=== PATIENT | female | born 1970 | race Asian ===

== ENCOUNTER → 2017-12-27 15:31 | Outpatient (CLI) | payer OTHER, SELFPAY ==
[2017-12-27 17:19] LABS: ALB/GLOB Ratio 1.1 RATIO (0.9-2.4); AST(SGOT) 25 U/L (15-37); Alanine Aminotransfer ALT/SGPT 39 U/L (13-56); Albumin, Serum 3.7 g/dL (3.2-5.0); Alkaline Phosphatase 106 U/L (45-117); Anion Gap 7 (5-15); BUN 16 mg/dL (7-18); Chloride 105 mmol/L (98-107); Cholesterol 153 mg/dL (200); Creatinine, Serum 0.47 mg/dL (0.55-1.02); EST Glomerular Filtration Rate 150 mL/min (>60); Est Glom Filt Rate - Afr Amer 181 mL/min (>60); Globulin 3.4 g/dL (2.2-4.2); Glucose 93 mg/dL (74-106); High Density Lipoprotein 68 mg/dL; Potassium 3.5 mmol/L (3.5-5.1); Protein, Total 7.1 g/dL (6.4-8.2); Sodium Level 140 mmol/L (136-145); Thyroid Stim Hormone (TSH) < 0.01 uIU/mL (0.358-3.74); Triglycerides 79 mg/dL; Very Low Density Lipoprotein 16 mg/dL (5-40)
== END ==
PROVIDERS: Family Provider Family Medicine; PCP Family Medicine; Visit Provider Family Medicine
DX: Z00.00 Encounter for general adult medical examination without abnormal findings (principal); E03.9 Hypothyroidism, unspecified
CPT/HCPCS: 36415; 80053; 80061; 84443

== ENCOUNTER → 2017-12-29 15:50 | Outpatient (CLI) | payer OTHER, SELFPAY ==
[2017-12-29 17:56] LABS: T4 Free Direct 2.79 ng/dL (0.76-1.46)
[2017-12-29 18:01] LABS: T3 Total - Triiodothyronine 3.18 ng/mL (0.6-1.81)
== END ==
PROVIDERS: Family Provider Family Medicine; PCP Family Medicine; Visit Provider Family Medicine
DX: E03.9 Hypothyroidism, unspecified (principal)
CPT/HCPCS: 36415; 84439; 84480

== ENCOUNTER → 2018-02-15 12:57 | Outpatient (CLI) | payer OTHER, SELFPAY | PROVIDERS: Family Provider Family Medicine; PCP Family Medicine; Visit Provider Nurse Practitioner | DX: E05.90 Thyrotoxicosis, unspecified without thyrotoxic crisis or storm (principal) | CPT/HCPCS: 36415 ==

== ENCOUNTER → 2018-04-14 07:49 | Outpatient (CLI) | payer OTHER, SELFPAY ==
[2018-04-14 09:01] LABS: T4 Free Direct 3.25 ng/dL (0.76-1.46); Thyroid Stim Hormone (TSH) < 0.01 uIU/mL (0.358-3.74)
== END ==
PROVIDERS: Visit Provider Nurse Practitioner
DX: E05.90 Thyrotoxicosis, unspecified without thyrotoxic crisis or storm (principal)
CPT/HCPCS: 36415; 84439; 84443; 84481

== ENCOUNTER → 2019-01-16 | Outpatient (CLI) | payer OTHER, SELFPAY ==
[2019-01-16 16:03] VITALS: BMI 18.6
[2019-01-19 12:51] LABS: HPV Reflexed? NOT INDICATED
== END | disposition home or self-care (01) ==
LOC: BIMLAB 01-17 11:15
PROVIDERS: PCP Family Medicine; Visit Provider Family Medicine
DX: Z01.419 Encounter for gynecological examination (general) (routine) without abnormal findings (principal)
CPT/HCPCS: 88175; G0145

== ENCOUNTER → 2020-01-28 | Outpatient (CLI) | payer OTHER, SELFPAY ==
[2020-01-28 16:10] VITALS: BMI 18.6
[2020-02-01 15:52] LABS: HPV Reflexed? NOT INDICATED
== END | disposition home or self-care (01) ==
LOC: LABSPEC 01-29 10:42
PROVIDERS: PCP Family Medicine; Referring Provider Family Medicine; Visit Provider Family Medicine
DX: Z01.419 Encounter for gynecological examination (general) (routine) without abnormal findings (principal)
CPT/HCPCS: 88175; G0145

== ENCOUNTER → 2020-03-11 08:57 | Outpatient (CLI) | payer OTHER, SELFPAY ==
[2020-01-28 16:10] VITALS: BMI 18.6
--- NOTE | 2020-03-11 08:59 | US_ITS ---
STUDY: ABDOMINAL ULTRASOUND - RIGHT UPPER QUADRANT REASON FOR VISIT: Female, 49 years old BRUISES EASILY TECHNIQUE: Ultrasound evaluation of the right upper quadrant was performed with real-time and static meza-scale imaging. TECHNICAL QUALITY: Adequate. COMPARISON: None. FINDINGS: Liver: The liver measures 17.6 cm. There is increased echogenicity consistent with fatty infiltration. The bile ducts are within normal limits. There is hepatic color flow. The direction of portal flow is hepatopetal. There is no demonstrated mass lesion. Gallbladder: Normal distended gallbladder. The gallbladder wall measures 2.3 mm. There is a negative sonographic Lopez''s sign. There is no pericholecystic fluid. There are no gallstones. Common Bile Duct (C.B.D.): The common bile duct measures 2.1 mm. Pancreas: Normal size of the head, body and tail of the pancreas. There is normal echogenicity of the pancreas. There is no demonstrated pancreatic mass or cyst. Right Kidney: Normal size of the right kidney. The right kidney measures 10 cm x 4.8 cm x 3.2 cm. Normal renal cortex. The right cortex measures 1.1 cm. There is no demonstrated renal mass or cyst. There is no right hydronephrosis. US/Liver IMPRESSION: Fatty infiltration of the liver. Electronically Signed: Modesto Dawkins, at 15:57 EDT , Service support ,
== END ==
PROVIDERS: PCP Family Medicine; Referring Provider Family Medicine; Visit Provider Family Medicine
DX: R23.8 Other skin changes (principal)
CPT/HCPCS: 76705

== ENCOUNTER → 2021-03-03 10:04 | Outpatient (CLI) | payer OTHER, SELFPAY ==
[2021-03-02 16:03] VITALS: BMI 18.6
[2021-03-05 18:42] LABS: HPV Reflexed? NOT INDICATED
== END ==
PROVIDERS: PCP Family Medicine; Referring Provider Family Medicine; Visit Provider Family Medicine
DX: Z01.419 Encounter for gynecological examination (general) (routine) without abnormal findings (principal)
CPT/HCPCS: 88175; G0145

== ENCOUNTER → 2022-01-12 | Outpatient (CLI) | payer BC, SELFPAY ==
[2022-01-12 14:03] LABS: Mucous, Urine 0 SEEN /hpf (<or=2+); Red Blood Cells-Urine 0 SEEN /hpf (0-5); White Blood Cells 0 SEEN /hpf (0-5)
[2022-01-12 15:11] LABS: Absolute Lymphocyte Count 2.79 X10^3/uL (0.83-4.51); Absolute Neutrophil Count 1.9 X10^3/uL (2.0-7.7); Basophil# 0.05 X10^3/uL; Basophil% 0.9 % (0-1); Eosinophil# 0.07 X10^3/uL; Eosinophils% 1.3 % (0-5); Hematocrit 34.2 % (37-47); Hemoglobin 11.2 g/dL (12.0-15.0); Lymphocyte # 2.79 X10^3/ul (0.83-4.51); Lymphocyte % 51.9 % (19-41); Mean Corp Hgb Conc 32.7 g/dL (32-36); Mean Corpuscular Hgb 29.4 pg (27.0-32.0); Mean Corpuscular Volume 89.8 fL (81-99); Mean Platelet Vol. 11.7 fl (6.2-12.0); Monocyte# 0.53 X10^3/uL; Monocyte% 9.9 % (0-10); NRBC Flagged by Analyzer 1.1 % (0-5); Neutrophil # 1.93 X10^3/uL (2.7-7.7); Neutrophil % 35.8 % (47-70); POSITIVE COUNT YES; Platelet Count 90 K/mm3 (150-450); RBC Distribution Width CV 16.2 % (11.6-14.6); RBC Distribution Width SD 53.1 fl (35.1-43.9); Red Blood Count 3.81 M/mm3 (4.2-5.4); White Blood Count 5.4 K/mm3 (4.4-11.0)
[2022-01-12 15:14] LABS: Differential Indicated SCAN CRITERIA MET
[2022-01-12 15:42] LABS: Color, Urine Yellow (Yellow); Glucose, Dipstick Normal (Normal); Ketone-Dipstick Negative (Negative); Leukocyte Esterase-Dipstick Negative /ul (Negative); Nitrite-Dipstick Negative (Negative); Occult Blood-Urine Negative /ul (Negative); Protein-Dipstick 15 mg/dl (Negative); Urine Bilirubin Dipstick Negative (Negative); Urine Clarity Clear (Clear); Urine Urobilinogen 1 mg/dl (Normal); Urine pH 6.5 (5.0 - 8.0)
[2022-01-12 15:54] LABS: Differential Comment SCANNED
[2022-01-12 16:00] LABS: Bacteria 1+ /hpf (None Seen); Squamous Epithelial Cells - UA 0-5 SEEN /hpf (5-10)
[2022-01-12 16:59] LABS: AST(SGOT) 57 U/L (15-37); Alanine Aminotransfer ALT/SGPT 61 U/L (13-56); Albumin, Serum 3.8 g/dL (3.2-5.0); Alkaline Phosphatase 139 U/L (45-117); Anion Gap 7 (5-15); BUN 12 mg/dL (7-18); BUN/Creat Ratio 14.1 RATIO (10-20); Calcium,Total 9.2 mg/dL (8.5-10.1); Chloride 103 mmol/L (98-107); Creatinine, Serum 0.85 mg/dL (0.55-1.02); EST Glomerular Filtration Rate 75 mL/min (>60); Est Glom Filt Rate - Afr Amer 90 mL/min (>60); Globulin 3.8 g/dL (2.2-4.2); Glucose 109 mg/dL (74-106); Potassium 3.5 mmol/L (3.5-5.1); Protein, Total 7.6 g/dL (6.4-8.2); Sodium Level 138 mmol/L (136-145)
[2022-01-12 21:38] LABS: T4 Free Direct 1.19 ng/dL (0.76-1.46); Thyroid Stim Hormone (TSH) 1.32 uIU/mL (0.358-3.74)
[2022-01-12 21:50] LABS: T3 Total - Triiodothyronine 1.81 ng/mL (0.6-1.81)
[2022-01-19 10:27] LABS: HPV Reflexed? NOT INDICATED
== END | disposition home or self-care (01) ==
LOC: BIMLAB 14:02
PROVIDERS: PCP Family Medicine; Referring Provider Family Medicine; Visit Provider Family Medicine
DX: Z01.419 Encounter for gynecological examination (general) (routine) without abnormal findings (principal); E05.90 Thyrotoxicosis, unspecified without thyrotoxic crisis or storm
CPT/HCPCS: 36415; 80053; 81001; 82533; 84439; 84443; 84480; 85025; 88175; G0145

== ENCOUNTER → 2023-03-02 | Outpatient (CLI) | payer BC, SELFPAY ==
[2023-03-09 14:23] LABS: HPV, High Risk Negative
== END | disposition home or self-care (01) ==
LOC: LABSPEC 15:47
PROVIDERS: PCP Family Medicine; Visit Provider Family Medicine
DX: Z01.419 Encounter for gynecological examination (general) (routine) without abnormal findings (principal)
CPT/HCPCS: 87623; 87624; 88142

== ENCOUNTER → 2024-02-07 | Outpatient (CLI) | payer BC, SELFPAY ==
[2024-02-07 17:32] LABS: Absolute Lymphocyte Count 2.56 X10^3/uL (0.83-4.51); Absolute Neutrophil Count 2.5 X10^3/uL (2.0-7.7); Basophil# 0.07 X10^3/uL; Basophil% 1.2 % (0-1); Eosinophil# 0.08 X10^3/uL; Eosinophils% 1.3 % (0-5); Erythrocyte Sedimentation Rate 26 mm/hr (0-30); Hematocrit 31.4 % (37-47); Hemoglobin 9.9 g/dL (12.0-15.0); Lymphocyte # 2.56 X10^3/ul (0.83-4.51); Lymphocyte % 42.2 % (19-41); Mean Corp Hgb Conc 31.5 g/dL (32-36); Mean Corpuscular Hgb 29.7 pg (27.0-32.0); Mean Corpuscular Volume 94.3 fL (81-99); Mean Platelet Vol. 10.8 fl (6.2-12.0); Monocyte# 0.83 X10^3/uL; Monocyte% 13.7 % (0-10); NRBC Flagged by Analyzer 0 % (0-5); Neutrophil % 41.3 % (47-70); Platelet Count 245 K/mm3 (150-450); RBC Distribution Width CV 14.5 % (11.6-14.6); RBC Distribution Width SD 49.6 fl (35.1-43.9); Red Blood Count 3.33 M/mm3 (4.2-5.4); White Blood Count 6.1 K/mm3 (4.4-11.0)
[2024-02-08 09:13] LABS: ALB/GLOB Ratio 0.7 RATIO (0.9-2.4); AST(SGOT) 32 U/L (15-37); Alanine Aminotransfer ALT/SGPT 27 U/L (13-56); Albumin, Serum 3.2 g/dL (3.2-5.0); Alkaline Phosphatase 119 U/L (45-117); Anion Gap 8 (5-15); BUN 9 mg/dL (7-18); BUN/Creat Ratio 13.6 RATIO (10-20); Calcium,Total 9.1 mg/dL (8.5-10.1); Chloride 99 mmol/L (98-107); Creatinine, Serum 0.66 mg/dL (0.55-1.02); EST Glomerular Filtration Rate 99 mL/min (>60); Est Glom Filt Rate - Afr Amer 119 mL/min (>60); Globulin 4.5 g/dL (2.2-4.2); Glucose 112 mg/dL (74-106); Potassium 3.4 mmol/L (3.5-5.1); Protein, Total 7.7 g/dL (6.4-8.2); Rheumatoid Factor < 10.0 IU/mL (<15); Sodium Level 138 mmol/L (136-145); Uric Acid 4.6 mg/dL (2.6-6.0)
[2024-02-14 18:33] LABS: HPV Reflexed? NOT INDICATED
[2024-02-14 18:34] LABS: Chlamydia By Nucleic Acid AMP Negative; Gonococcus By Nucleic Acid AMP Negative
== END | disposition home or self-care (01) ==
LOC: BIMLAB 13:48
PROVIDERS: PCP Family Medicine; Visit Provider Family Medicine
DX: E03.9 Hypothyroidism, unspecified (principal); M19.90 Unspecified osteoarthritis, unspecified site
CPT/HCPCS: 36415; 80053; 84443; 84550; 85025; 85652; 86431; 87491; 87591; 88142

== ENCOUNTER → 2024-02-16 | Outpatient (CLI) | payer BC, SELFPAY ==
--- NOTE | 2024-02-16 11:10 | RAD_ITS ---
STUDY: X-RAY - RIGHT ANKLE REASON FOR EXAM: Female, 53 years old. Swollen right ankle. TECHNIQUE: 3 views of the right ankle. COMPARISON: None. FINDINGS: Normal visualized distal tibia. Intact medial and lateral malleoli. There is lateral osseous spurring at the distal fibular tip and lateral calcaneus. Normal tibiotalar articulation and ankle mortise. There is metallic fixation hardware along the lateral aspect of the calcaneus. Intact visualized talus and calcaneus. The visualized subtalar, talonavicular, calcaneocuboid and tarsal articulations are normal. There is no demonstrated acute fracture. There is soft tissue swelling around the ankle. RAD/Ankle min 3 Views IMPRESSION: Lateral osseous spurring at the distal fibular tip and lateral calcaneus. Soft tissue swelling around the ankle. No demonstrated acute fracture. Electronically Signed: Yobany Huddleston MD at 12:46 EDT ,
[2024-02-16 11:43] LABS: Iron 105 ug/dL (50-170); Iron Binding Capacity,Total 349 ug/dL (250-450); PERCENT IRON SATURATION 30.1 % (15.0-55.0)
== END | disposition home or self-care (01) ==
LOC: LAB 10:38
PROVIDERS: PCP Family Medicine; Referring Provider Family Medicine; Visit Provider Family Medicine
DX: M25.571 Pain in right ankle and joints of right foot (principal)
CPT/HCPCS: 36415; 73610; 83540; 83550

== ENCOUNTER 2024-03-26 06:50 | Day surgery (SDC) | payer BC, SELFPAY ==
[2024-03-26] VITALS (8 sets, daily range): BP systolic 106–155; BP diastolic 68–88; PULSE 80–92; RESP 16–18; TEMP 36.8–37.2; O2SAT 96–100; BMI 18.3
[2024-03-26] MEDS: Lactated Ringers 1,000 ML 15 ML IV (07:11)
--- NOTE | 2024-03-26 07:11 | HP.PCM_ITS ---
History and Physical Date of Admission: 03/26/24 Date of Service: 03/12/24 MR#: [id number] Acct: [id number] Name: SAL PATEL Rep #: [id number] : 1970 Provider: Dr. Jennifer Mcguire MD Age/Sex: 53/F Location: [facility] Status: Signed Intake Vital Signs 02/19/2410:38 03/12/2414:15 Height 5 ft 4 in 5 ft 4 in Weight: 107 lb 108 lb BMI 18.3 18.5 BP 112/60 134/89 H Blood Pressure Location Lt brachial Rt brachial Position Sitting Sitting Respiration 14 17 Pulse 84 94 Pulse Source Monitor Monitor Temp 97 F L Temp Source Temporal Pulse Oximetry (%) 99 97 Oxygen Delivery Method room air room air Intake Visit Reasons: WEIGTH LOSS, NAUSEA Chief Complaint: wt loss/nausea/anemia Is patient in pain?: No Allergies No Known Allergies Allergy (Verified 03/12/24 14:17) Medications ?Medication ?Instructions ?Recorded ?Confirmed ?Type multivitamin 1 cap PO QAM 12/27/17 03/12/24 History PFSH Medical History Hypothyroidism Carpal tunnel syndrome Cataracts, bilateral Surgical History History of carpal tunnel release of both wrists Hx of foot surgery Family History Sister Breast cancer Thyroid disorder Diabetes Social History Smoking Status: Current every day smoker alcohol intake: current alcohol intake frequency: 0-2 drinks per day Alcohol type: beer substance use type: does not use what type of physical activity do you participate in: none HPI HPI HPI: 53-year-old female presents for possible colonoscopy. Patient never had previous colonoscopy. Patient is unsure of family history as she left her country when she was 11 and does not know further family history than her parents otherwise denies history of colon cancer. Patient did recently have wrist surgery and has been dealing with that since November. Patient states that with her wrist she does not really feel like cooking this has not really ate as much states that when her cooks she has been eating and her is agreeable to this. Patient states she has bowel movements daily denies any blood denies any abdominal pain nausea vomiting or reflux. Patient's weight is 108 states maybe 10 years ago was 116 and 20 years before that was 130 but she was at that time. Patient does not think there has been major or concerning weight loss. Patient does go back to work March 28 as she states she does not have any vacation as she used it up with her wrist. ROS General General: Yes weight change; No appetite, fatigue, colon cancer, breast cancer or weakness HEENT HEENT: Yes eye surgery; No difficulty swallowing, eye injury, swollen glands or hoarseness Endo Endocrine: Yes thyroid disease; No diabetes mellitus, thyroid cancer, Hair loss, heat intolerance or cold intolerance Skin Skin: No rash or changing moles Musc Musculoskeletal: No back problems, arthritis, rheumatoid arthritis, gout or joint pain Cardio Cardiovascular: No murmur, pacemaker, heart disease, atrial fibrillation, high blood pressure, heart attack, heart stent, palpitations, shortness of breat with exertion or chest pain Psych Psychiatric: Yes depression; No anxiety or hearing voices Resp Respiratory: No shortness of breath, No sleep apnea, No cough, No COPD, No asthma, No emphysema and No wheezing Gastro Gastrointestinal: No abdominal pain, Yes nausea or vomiting, No diarrhea, No constipation, No blood in stool, No acid reflux, No hemorrhoids, No ulcers, No gallbladder problem and No black,tarry stools Asad Hematologic: No blood thinners, No blood disorders, No bleeding, No anemia and No blood clots Neuro Neurologic: No system reviewed and no additional complaints, except as documented, No as per HPI, No abnormal gait, No abnormal hearing, No abnormal movements, No abnormal speech, No behavioral changes, No burning sensations, No confusion, No convulsions, No disequilibrium, No dizziness, No localized weakness, No frequent falls, No headache(s), No lack of coordination, No loss of vision, No memory loss, No numbness, No other visual disturbances, No radicular pain, No restless legs, No sensory deficit, No syncope, No tingling, No tremor(s), No weakness and No other Exam Const General: cooperative, healthy appearing, comfortable and no acute distress HENMT Head: normocephalic and atraumatic Neck Neck: supple Resp Effort & Inspection: normal respiratory effort Cardio Rate: regular rate GI Inspection: non-distended Palpation: soft, no hernias and nontender Skin General: no rashes or lesions noted Neuro General: CN's II-XI intact bilaterally Extrem General: normal to inspection Other: Left hand/wrist brace in place Psych Mental Status: mental status grossly normal Attitude: cooperative Assessment and Plan Assessment and Plan (1) Anorexia: Status: Acute (2) Screening for malignant neoplasm of colon: Status: Acute Orders: Orders Colonoscopy 03/26/24 Plan After talking with patient sounds like she is not really anorexic just did not really want to prepare food due to her wrist surgery thus did not really eat as much. Patient's has been preparing food and patient has been eating without any issues or difficulties per patient and her agrees. Patient's weight has not really changed too much recently. Will plan for a screening colonoscopy. I have discussed the above with the patient. I have offered the patient colonoscopy for evaluation. I have explained the risks/benefits of the procedure and described the procedure. I have discussed the risks with the patient, including but not limited to: infection, bleeding, perforation of the GI tract requiring emergency surgery, inability to complete the procedure, injury to any internal organs, complications of anesthesia, etc. - the patient understands and agrees to proceed. I have answered all the patient's questions to the patient's satisfaction and the patient has no further questions. The patient has been given instructions for the colon cleansing preparation. 1 day of clears, MiraLAX Dulcolax prep. Jennifer Mcguire M.D. Pager: [phone] [facility] [address] [place] [address], [address] [place] [address] Office: [phone] Coding Level of Care Code Off vis,new,level 3 Diagnoses Anorexia R63.0 Screening for malignant neoplasm of colon Z12.11 03/13/24 1028 <Electronically signed by Jennifer Mcguire MD> Date Jennifer Mcguire MD
--- NOTE | 2024-03-26 07:18 | PCM.PRE.AN2 ---
ASA Classification* ASA Classification ASA Classification: 2 Assessment & Plan Anesthesia* Anesthesia Assessment Anesthesia Assessment: Discussed sedation and/or anesthesia options, risks, benefits, and alternatives with patient/parents/legal guardian/POA. Questions invited. The patient/parents/legal guardian/POA seems to understand and agrees to proceed with anesthesia plan. Reviewed the physical assessment, medical history, allergy history and patient home medications list prior to surgery/procedure/anesthetic and documented any changes. Performed airway and anesthesia risk assessments. Anesthesia Type Anesthesia Type: MAC (see written pre anesthesia record for full assessment) Anesthesia Focused Assessment* Temperature: 98.9 F Pulse Rate: 92 Blood Pressure: 155/88 Respiratory Rate: 18 Pulse Ox: 98 Airway Assessment Mouth opens: >3 cm Mallampati Score: III Focused Labs Anesthesia Preop lab: CBC WBC 6.1 K/mm3 (4.4-11.0) 02/07/24 13:48 RBC 3.33 M/mm3 (4.2-5.4) L 02/07/24 13:48 Hgb 9.9 g/dL (12.0-15.0) L 02/07/24 13:48 Hct 31.4 % (37-47) L 02/07/24 13:48 Plt Count 245 K/mm3 (150-450) 02/07/24 13:48 CHEMISTRY Potassium 3.4 mmol/L (3.5-5.1) L 02/07/24 13:48 Sodium 138 mmol/L (136-145) 02/07/24 13:48 BUN 9 mg/dL (7-18) 02/07/24 13:48 Creatinine 0.66 mg/dL (0.55-1.02) 02/07/24 13:48 Glucose 112 mg/dL (74-106) H 02/07/24 13:48 TSH 0.30 uIU/mL (0.358-3.74) L 02/07/24 13:48 COAG Pre-Assessment Diagnosis/Proposed Procedure Planned Operative Procedure(s): CSCOPE Anesthesia History Anesthesia History - health science specialist: Anesthesia History - health science specialist Hx Hospitalization No 03/20/24 14:38 Any Problems With Anesthesia No 03/20/24 14:38 Cholinesterase deficiency No 03/20/24 14:38 You/Your Family Experience No 03/20/24 14:38 fever (hyperthermia) with Relationship Recent Exposure to Contagious No 03/26/24 07:13 Disease Does patient have nerve No 03/20/24 14:38 stimulator Patient instructed to have device shut off --Does patient have Pacemaker No 03/26/24 07:13 or ICD? When Was Last Pacemaker Check QUESTION #4 FULL TEXT: You/Your Family Experience fever (hyperthermia) with Anesthesia Last Oral Intake Last Oral intake: Last Oral Intake NPO since 00:00 03/26/24 07:13 Meds taken in AM with sips of No 03/26/24 07:13 water? Meds patient instructed to take am of surgery PONV PONV - health science specialist: PONV - health science specialist Female Yes 03/20/24 14:38 HX of Motion Sickness No 03/20/24 14:38 HX of N/V After Surgery No 03/20/24 14:38 Non-Smoker No 03/20/24 14:38 Duration of Surgery greater No 03/20/24 14:38 than 60 minutes Number of Risk Factors 1 03/20/24 14:38 PONV Score Low Risk 03/20/24 14:38 Height & Weight Height & Weight: Anesthesia: Height & Weight Height 5 ft 4 in 03/26/24 07:13 Weight: 48.534 kg 03/26/24 07:13 Body Mass Index (BMI) 18.3 03/26/24 07:13 Respiratory Assessment Respiratory Assessment - health science specialist: Respiratory Tract Infection Hx - health science specialist Hx Respiratory Tract Infection No 03/20/24 14:38 STOP Sleep Apnea STOP Sleep Apnea - health science specialist: STOP Sleep Apnea - health science specialist Hx Hypertension No 03/20/24 14:38 Hx Sleep Apnea No 03/20/24 14:38 CPAP BIPAP Do you snore loudly (louder No 03/20/24 14:38 than talking or can be heard Do you often feel tired/ No 03/20/24 14:38 fatigued/ sleepy during daytime? Has anyone observed you stop No 03/20/24 14:38 breathing during sleep? STOP Results Negative 03/20/24 14:38 QUESTION #5 FULL TEXT : Do you snore loudly (louder than talking or can be heard through closed doors)? 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 Specify any problems Hx of Preganancy in last 3 N/A 03/20/24 14:38 Months Nurse Filling Out Transfusion NBUCHER 03/20/24 14:38 & Questions: Date: 03/20/24 03/20/24 14:38 Time: 14:39 03/20/24 14:38 Patient unable to answer at this time (ie. confused, unrespo /Reproduction History /Reproductive History - health science specialist: /Reproductive Hx- health science specialist Hx Now No 03/20/24 14:38 Gestational Age (in weeks): EDC: Hx Hx Para Hx Section SAB No 03/20/24 14:38 Active Medications Active Medications: Current Medications Generic Name Dose Route Start Last Admin Trade Name Freq PRN Reason Stop Dose Admin Lactated Ringer's 1,000 mls @ 15 mls/hr 03/26/24 07:00 03/26/24 07:11 IV 15 mls/hr .Q48H JOSE Administration PFSH Medical History Wears glasses Post-menopausal Alcohol use Thyroid disease Smoker Hypothyroidism Carpal tunnel syndrome Cataracts, bilateral Home Medications ?Medication ?Instructions ?Recorded ?Last Taken ?Type multivitamin 1 cap PO QAM 12/27/17 Unknown History Allergy/AdvReac Type Severity Reaction Status Date / Time No Known Allergies Allergy Verified 03/26/24 07:17 Family History Sister Breast cancer Thyroid disorder Diabetes Surgical History History of carpal tunnel release of both wrists Hx of foot surgery Social History Smoking Status: Current every day smoker tobacco type: cigarettes alcohol intake: current alcohol intake frequency: 0-2 drinks per day Alcohol type: beer substance use type: does not use what type of physical activity do you participate in: none Review of Systems (Anesthesia) ROS Narrative System reviewed and no additional complaints, except as documented.
--- NOTE | 2024-03-26 08:00 | COLBX_PTH ---
PATIENT: SAL PATEL LOC: EN U#:[id number] AGE/SX: 53/F ROOM: RE03/26/[address]: Dr. Jennifer Mcguire MD : 1970 BED: DIS: 03/26/2024 SPEC #: [id number] RECD: 03/26/24 11:11 STATUS: TRESSA ROBERTO #: [id number] JOSE: 03/26/24 08:[address]: Jennifer Mcguire DEPT: SURGICAL PATHOLOGY RECD BY: Gaby Mc ENTERED: 03/26/24 13:06 SP TYPE: COLON BX OTHR DR: Dr. Neftali Nobles, DO Tissues: Cecum, NOS Procedures: Surgery Specimen Level IV HEADER OPERATION: Colonoscopy with polyp biopsy PRE-OP DIAGNOSIS: Anorexia, screening TISSUE SUBMITTED: Cecum polyp biopsy x2 MICROSCOPIC DIAGNOSIS Cecum polyp, biopsy: Fragments of tubular adenoma. AM/mr 03/27/2024 MICROSCOPIC DESCRIPTION Slides are reviewed. GROSS DESCRIPTION Received in fixative is one container labeled with the patient's name and designated Cecum polyp biopsy x2. The specimen consists of multiple irregular fragments of light awad soft tissue that in aggregate measure 1.0 x 0.3 x 0.1 cm. The specimen is totally submitted in one cassette. JOSE/ 03/26/2024 TC:5 CPT:62991
--- NOTE | 2024-03-26 08:13 | OP.CCLET_ITS ---
03/26/2024 Neftali Nolbes Re : Colonoscopy procedure for Katie Wheeler Dear Dr. Nobles This procedure was performed on Tuesday, March 26, 2024. My impressions and recommendations are as follows: Impressions : - Two less than 5 mm polyps in the cecum, removed with a cold biopsy forceps. Resected and retrieved. - The examination was otherwise normal on direct and retroflexion views. Recommendations : - Discharge patient to home. - Resume previous diet. - Continue present medications. - Await pathology results. - Repeat colonoscopy in 5 years for surveillance based on pathology results. My findings are described in the full procedure note, which is enclosed. If I can be of further assistance, please feel free to contact me at Doctor phone number(s): , Work: . Sincerely, MD Jennifer Rowell MD 03/26/2024 8:13:20 AM This report has been signed electronically.
--- NOTE | 2024-03-26 08:13 | OP.COLON_ITS ---
Patient Name: Katie Wheeler Procedure Date: 03/26/2024 7:43 AM Date of : 1970 Age: 53 Procedure: Colonoscopy Indications: Screening for colorectal malignant neoplasm Providers: Jennifer Mcguire MD Referring MD: Neftali Nobles Medicines: Monitored Anesthesia Care Patient Profile: This is a 53 year old female. Last Colonoscopy: none. The patient's first colonoscopy is today. Complications: No immediate complications. Procedure: Pre-Anesthesia Assessment: - Prior to the procedure, a History and Physical was performed, and patient medications and allergies were reviewed. The patient's tolerance of previous anesthesia was also reviewed. The risks and benefits of the procedure and the sedation options and risks were discussed with the patient. All questions were answered, and informed consent was obtained. Prior Anticoagulants: The patient has taken no anticoagulant or antiplatelet agents. ASA Grade Assessment: Per anesthesia. After reviewing the risks and benefits, the patient was deemed in satisfactory condition to undergo the procedure. After I obtained informed consent, the scope was passed under direct vision. Throughout the procedure, the patient's blood pressure, pulse, and oxygen saturations were monitored continuously. The Colonoscope was introduced through the anus and advanced to the terminal ileum. The colonoscopy was performed without difficulty. The patient tolerated the procedure well. The quality of the bowel preparation was good. Scope In: 7:54:37 AM Scope Withdrawal Time 0 hours 9 minutes 12 seconds Scope Out: 8:08:15 AM Total Procedure Duration Time 0 hours 13 minutes 38 seconds Findings: The perianal and digital rectal examinations were normal. Two sessile polyps were found in the cecum. The polyps were less than 5 mm in size. These polyps were removed with a cold biopsy forceps. Resection and retrieval were complete. The exam was otherwise without abnormality on direct and retroflexion views. Impression: - Two less than 5 mm polyps in the cecum, removed with a cold biopsy forceps. Resected and retrieved. - The examination was otherwise normal on direct and retroflexion views. Recommendation: - Discharge patient to home. - Resume previous diet. - Continue present medications. - Await pathology results. - Repeat colonoscopy in 5 years for surveillance based on pathology results. Procedure Code(s): --- Professional --- 29223, PT, Colonoscopy, flexible; with biopsy, single or multiple Diagnosis Code(s): --- Professional --- Z12.11, Encounter for screening for malignant neoplasm of colon D12.0, Benign neoplasm of cecum CPT copyright 2021 [employer]. All rights reserved. The codes documented in this report are preliminary and upon software development manager review may be revised to meet current compliance requirements. MD Jennifer Rowell MD 03/26/2024 8:13:20 AM This report has been signed electronically. Number of Addenda: 0 Note Initiated On: 03/26/2024 7:43 AM
--- NOTE | 2024-03-26 08:17 | PCM.POST.ANE ---
Anesthesia: Postop Eval I Current Vital Signs Temperature: 98.2 F Pulse Rate: 88 Blood Pressure: 106/75 Respiratory Rate: 18 Pulse Ox: 100 Oxygen Delivery Method: Room Air Assessment Airway patent: Yes Spontaneous unlabored respirations: Yes Mental status: Awake and Calm nausea: No Vomiting: No Anesthesia Complication: No Fluid Hydration Crystalloid volume administer (ml): 500 Total IV fluid infused: 500 Progress Note Anesthesia document: Postop Eval 1 completed: Yes
--- NOTE | 2024-03-26 08:28 | PCM.POSTANE2 ---
Anesthesia Postop Eval I Sum Postop Eval Completion status Anesthesia document: Postop Eval 1 completed: Yes Anesthesia Postop Eval I Summary Anesthesia Postop Eval I Summary: Anesthesia Postop Eval I: Assessment Summary Airway patent Yes 03/26/24 08:18 [email or web address] Spontaneous unlabored Yes 03/26/24 08:18 [email or web address] respirations Mental status Awake,Calm 03/26/24 08:18 [email or web address] nausea No 03/26/24 08:18 [email or web address] Vomiting No 03/26/24 08:18 [email or web address] Anesthesia Postop Eval I: Fluid Summary Crystalloid volume administer 500 03/26/24 08:18 [email or web address] (ml) Colloids volume administered ( ml) Blood Product volume administered (ml) Total IV fluid infused 500 03/26/24 08:18 [email or web address] Anesthesia Postop Eval I: Summary Notes Anesthesia Complication No 03/26/24 08:18 [email or web address] Anesthesia Complication Comment: Post-operative progress note Anesthesia: Postop Eval II Evaluation Mental status: Awake Pain Level: 0 nausea: No Vomiting: No
== END 2024-03-26 08:39 | disposition home or self-care (01) ==
LOC: EN 06:51 → AC 06:52
PROVIDERS: PCP Family Medicine; Referring Provider Family Medicine; Visit Provider Surgery
PROC: 0DJD8ZZ Inspection of Lower Intestinal Tract, Via Natural or Artificial Opening Endoscopic (ICD-10-PCS; CPT 45378; principal; 2024-03-26 07:55)
DX: Z12.11 Encounter for screening for malignant neoplasm of colon (principal); D12.0 Benign neoplasm of cecum; F17.200 Nicotine dependence, unspecified, uncomplicated; D64.9 Anemia, unspecified; R63.0 Anorexia
CPT/HCPCS: 45380; 88305; J7120; J2405

== ENCOUNTER → 2025-05-07 | Outpatient (CLI) | payer BC, SELFPAY ==
[2025-05-07 16:35] LABS: Hematocrit 30.0 % (37-47); Hemoglobin 10.3 g/dL (12.0-15.0); Immature Granulocytes Count 0.010 X10^3/uL (0.0-0.0); Mean Corp Hgb Conc 34.3 g/dL (32-36); Mean Corpuscular Volume 92.0 fL (81-99); Mean Platelet Vol. 13.2 fl (6.2-12.0); NRBC Flagged by Analyzer 0 % (0-5); POSITIVE COUNT YES; Platelet Count 37 K/mm3 (150-450); RBC Distribution Width CV 13.7 % (11.6-14.6); RBC Distribution Width SD 46.3 fl (35.1-43.9); Red Blood Count 3.26 M/mm3 (4.2-5.4); White Blood Count 4.5 K/mm3 (4.4-11.0)
[2025-05-07 16:58] LABS: AST(SGOT) 184 U/L (<=31); Alanine Aminotransfer ALT/SGPT 73 U/L (<=34); Albumin, Serum 4.4 g/dL (3.5-5.0); Alkaline Phosphatase 121 U/L (35-104); Anion Gap 19 (5-15); BUN 13 mg/dL (4-19); BUN/Creat Ratio 19.0 RATIO (10-20); Calcium,Total 8.4 mg/dL (7.6-11.0); Carbon Dioxide 24.4 mmol/L (21.0-32.0); Chloride 95 mmol/L (98-108); Globulin 2.9 g/dL (2.2-4.2); Glucose 89 mg/dL (70-99); Potassium 3.3 mmol/L (3.3-5.1)
[2025-05-07 18:15] LABS: Differential Indicated SCAN CRITERIA MET
[2025-05-07 18:16] LABS: Target Cells 2+
== END | disposition home or self-care (01) ==
LOC: BIMLAB 14:55
PROVIDERS: PCP Family Medicine; Referring Provider Family Medicine; Visit Provider Family Medicine
DX: D64.9 Anemia, unspecified (principal); R63.0 Anorexia
CPT/HCPCS: 36415; 80053; 85025; 85652

== ENCOUNTER → 2025-06-13 | Outpatient (CLI) | payer BC, SELFPAY ==
--- NOTE | 2025-06-13 10:48 | US_ITS ---
PROCEDURE: ABD COMPLETE W/ ELASTOGRAPHY 06/13/2025 REASON FOR EXAM: ELEVATED LFTS COMPARISON: Prior study dated March 11, 2020. TECHNIQUE: Procedure Code: [id number] Modality: US Procedure: ABD COMPLETE W/ ELASTOGRAPHY FINDINGS: LIVER: Size: Unremarkable Length: 16.6 cm Echotexture: Diffusely echogenic suggesting fatty infiltration Contour: Normal Lesions: None identified Elastography: EQI Med: 10.9 kPa EQI Med Teofilo: 1.9 m/s IQR/Med: 6.6 %* GALLBLADDER: No stones sludge wall thickening or tenderness. COMMON BILE DUCT: Normal measuring 3.6 mm PANCREAS: Normal KIDNEYS: The right kidney measures 10.6 cm x 4.6 cm 3.3 cm. The left kidney measures 9.6 cm x 3.6 cm x 3.8 cm. Renal parenchymal thicknesses and echotextures are preserved. No hydronephrosis. SPLEEN: Normal spleen measures 7.7 cm 1.8 cm 2.2 cm. AORTA: Visualized abdominal aorta is of normal size. IVC: Visualized inferior vena cava is unremarkable. PERITONEAL FINDINGS: No ascites identified. US/ABD Complete w/ Elastography IMPRESSION: MODERATE TO SEVERE HEPATIC FIBROSIS Fatty infiltration of the liver. Reference Values: SRU <1.37 m/s (5.7kPa): No to mild fibrosis 1.37 m/s - 2.2 m/s: Moderate to severe fibrosis >2.2 m/s (15kPa): Significant fibrosis / cirrhosis METAVIR Score F2 or higher: 1.34 m/s (5.7kPa) F3 or higher: 1.55 m/s (7.3kPa) F4: 1.80 m/s (10kPa) * If the IQR/Med is >30%, the variance in the measurements is a large and the a ccuracy of the measurement may be in question. Reading Location: [place] [address]
== END | disposition home or self-care (01) ==
LOC: US 10:43
PROVIDERS: PCP Family Medicine; Referring Provider Internal Medicine; Visit Provider Internal Medicine
DX: K70.10 Alcoholic hepatitis without ascites (principal); F10.20 Alcohol dependence, uncomplicated; E87.6 Hypokalemia; R74.8 Abnormal levels of other serum enzymes; D69.6 Thrombocytopenia, unspecified; E05.90 Thyrotoxicosis, unspecified without thyrotoxic crisis or storm
CPT/HCPCS: 76700; 76981